=== PATIENT | female | born 1980 | race Caucasian/White ===

== ENCOUNTER 2021-04-03 17:21 | Observation (INO) | payer OTHER, SELFPAY ==
--- NOTE | 2021-04-03 | ECG_ITS ---
Test Reason : CHEST PAIN Blood Pressure : / mmHG Vent. Rate : 099 BPM Atrial Rate : 099 BPM P-R Int : 142 ms QRS Dur : 072 ms QT Int : 336 ms P-R-T Axes : 069 077 -06 degrees QTc Int : 431 ms Sinus rhythm with marked sinus arrhythmia Low voltage QRS Nonspecific T wave abnormality Abnormal ECG No previous ECGs available Referred By: Generic ED Physician Electronically Signed By:MAXWELL BERG
--- NOTE | ~2021-04-03 | XR_ITS ---
EXAMINATION: XR CHEST CLINICAL INFORMATION: Chest pain COMPARISON: None TECHNIQUE: Frontal view of the chest was obtained. FINDINGS: Lungs are well-inflated and clear. Trachea is midline in position. No interstitial disease, consolidation or mass. No pulmonary edema, pleural effusion or pneumothorax. Cardiac silhouette and pulmonary vessels are normal in size. The mediastinum and niurka have normal contour. The visualized bones and upper abdomen are unremarkable. XR/XR chest 1V IMPRESSION: No acute cardiopulmonary abnormality.
--- NOTE | ~2021-04-03 | CT_ITS ---
EXAMINATION: CT ANGIOGRAM OF THE CHEST WITH AND WITHOUT CONTRAST (CT PULMONARY ANGIOGRAM FOR PE) CLINICAL INFORMATION: Reason for Exam Tachycardia, pain on inspiration COMPARISON: None TECHNIQUE: Prior to contrast administration, noncontrast localization images were obtained. Subsequently, multidetector volumetric imaging was performed from the thoracic inlet to below the diaphragms following the administration of 65 mL Omnipaque 350 intravenous contrast. No contrast reaction reported Sagittal, coronal, and MIP oblique sagittal reformatted images were obtained on the CT workstation, uploaded to PACS, and reviewed. This CT examination was performed using dose optimization techniques as appropriate, variously including the following: *Automated exposure control *Adjustment of mA and/or kV according to patient size (this includes techniques or standardized protocols for targeted exams where dose is matched to indication/reason for exam; i.e. extremities or head) *Use of iterative reconstruction technique Total exam dose-length product 359 mGy-cm FINDINGS: QUALITY OF STUDY/CONTRAST BOLUS: Satisfactory. PULMONARY ARTERIES: No central or segmental pulmonary emboli. THORACIC AORTA: No aneurysm or dissection. LUNG: No focal consolidation, nodules or masses. PLEURA: No pleural effusion or pneumothorax. MEDIASTINUM: Normal heart size. No pericardial effusion. No hilar or mediastinal lymphadenopathy. No evidence of septal bowing or right heart strain. CHEST WALL/AXILLA: No axillary or internal mammary lymphadenopathy. OSSEOUS STRUCTURES: No acute or suspicious osseous abnormality. UPPER ABDOMEN: Unremarkable. No reflux of contrast into the hepatic veins to suggest elevated right heart pressures. CT/CT angio chest PE protocol IMPRESSION: Normal pulmonary CTA. No evidence of embolic disease. VTE: negative
--- NOTE | ~2021-04-03 | CT_ITS ---
EXAMINATION: CT HEAD WITH CONTRAST CLINICAL INFORMATION: Right-sided headache COMPARISON: None TECHNIQUE: Contiguous axial imaging was performed from the skull base to vertex following the administration of 65 mL of Omnipaque [address] examination was performed using dose optimization techniques as appropriate, variously including the following: *Automated exposure control *Adjustment of mA and/or kV according to patient size (this includes techniques or standardized protocols for targeted exams where dose is matched to indication/reason for exam; i.e. extremities or head) *Use of iterative reconstruction technique DLP: 691 mGy-cm FINDINGS: There is no evidence of acute intracranial hemorrhage or territorial infarction. No abnormal mass effect or midline shift is seen. [place] to white matter differentiation is well preserved. No extra-axial fluid collections are identified. There is no abnormal enhancement. The ventricles are normal in size. There is no abnormal attenuation within the brain parenchyma. The osseous structures and soft tissues are normal. The mastoid air cells and visualized portions of the paranasal sinuses are well aerated. CT/CT head/brain w con IMPRESSION: No acute intracranial pathology.
[2021-04-03 17:24] VITALS: BP 119/95; PULSE 106; RESP 19; TEMP 36.8; O2SAT 100; BMI 31.1
[2021-04-03 17:48] LABS: MANUAL DIFF FLAG NO
[2021-04-03 17:50] LABS: Basophils Percent Auto 0.4 % (0-2); Hematocrit 36.9 % (37.0-47.0); Hemoglobin 11.8 g/dl (12.0-16.0); Imm Gran Abs Auto 0.03 X10*3/uL (0.00-0.03); Imm Gran Pct Auto 0.4 % (0.0-0.4); Lymphocytes Percent Auto 13.4 % (20-40); Mean Corpuscular Hemoglobin 25.8 pg (27.0-33.0); Mean Corpuscular Volume 80.6 fL (80.0-98.0); Mean Platelet Volume 9.6 fL (9.4-12.3); Monocytes Absolute Auto 0.3 X10*3/uL (0.1-1.2); Monocytes Percent Auto 4.3 % (2-11); Neutrophils Absolute Auto 6.3 x10*3/uL (2.0-8.3); Neutrophils Percent Auto 81.5 % (45-73); Platelet Count 415 X10*3/uL (160-400); Red Blood Count 4.58 X10*6/uL (4.20-5.50); Red Cell Distribution Width 14.6 % (11.0-16.0); White Blood Count 7.7 X10*3/uL (4.8-10.8)
[2021-04-03 18:02] LABS: Anion Gap 13 (12-20); Blood Urea Nitrogen 8 mg/dL (9-16); Calcium 9.8 mg/dL (8.4-10.2); Carbon Dioxide 21 mmol/L (22-29); Chloride 108 mmol/L (96-108); Creatinine Clr Calc Pharmacy 103.6; Estimated Glomerular Filt Rate > 60; Glucose Random 134 mg/dL (60-115); Potassium 3.7 mmol/L (3.3-5.1); Sodium 138 mmol/L (135-145)
[2021-04-03 18:04] LABS: D Dimer High Sensitivity < 150 NG/ML
[2021-04-03 18:09] LABS: Troponin-I High Sensitivity < 3.5 ng/L (<3.5-17.0)
--- NOTE | 2021-04-03 18:10 | ED.CHESTPAIN ---
HPI - Chest Pain General Chief Complaint: Chest Pain Stated Complaint: chest pains, palpitations Time Seen by Provider: 04/03/21 21:10 Source: patient Mode of arrival: ambulatory Limitations: no limitations History of Present Illness HPI narrative: 40-year-old female presents with multiple complaints. States that she has had multiple episodes of chest pain, palpitations, shortness of breath and increased palpitations on minimal exertion, and weakness. She also reports right-sided headache with pain behind her ear eye and neck for approximately 2 weeks. She was treated with antibiotics for an ear infection which she finished the last dose of antibiotics today. Patient did state that she felt a little bit better midway through the course of antibiotics however today her weakness, palpitations, and shortness of breath on exertion has increased. MD complaint: chest pain Onset (ago): week(s) Timing of current episode: episodic and increasing Prior episodes: Yes Onset: during rest and during exertion Pain location: substernal Pain radiation: neck and right shoulder Severity: moderate Pain scale (0-10): 7 Quality: aching and heaviness Relieving factors: nothing Exacerbating factors: exertion and inspiration Associated symptoms: nausea, dyspnea and palpitations Treatment prior to arrival: none Risk Factors Coronary artery disease risk factors: none Thoracic aortic dissection risk factors: none Related Data On Oral Contraceptives: No Allergies Allergy/AdvReac Type Severity Reaction Status Date / Time oxycodone [From OxyContin] AdvReac Drowsy Verified 04/04/21 00:13 Review of Systems Review of Systems: Constitutional: No Weight loss, No Fever, No Chills, No Night Sweats, positive Fatigue, No Malaise ENT/Mouth: No Hearing loss, positive right ear Ear pressure, No Nasal Congestion, No Sinus Pain, No Hoarseness, No sore throat, No Rhinorrhea, No Swallowing Difficulty Eyes: Positive right Eye pressure, No Swelling, No Redness, No Foreign Body, No Discharge, No Vision Changes Cardiovascular: Positive Chest Pain, positive SOB, positive Dyspnea on Exertion, No Orthopnea, No Edema, positive Palpitations Respiratory: No Cough, No Sputum, No Wheezing, No Smoke Exposure, No Dyspnea Gastrointestinal: Positive Nausea, No Vomiting, No Diarrhea, No abdominal Pain, No Hematochezia, No Melena Genitourinary: No irregular bleeding, No Dysuria, No Urinary Frequency, No Hematuria, No Urinary Incontinence, No Urgency, No Flank Pain, No Urinary Flow Changes, No Hesitancy Musculoskeletal: No joint pain, No Myalgias, No Joint Swelling Skin: No Skin Lesions, No rash Neuro: No Weakness, No Numbness, No Paresthesias, No Loss of Consciousness, No Dizziness, No Headache Psych: No Anxiety/Panic, No Depression, No SI/HI/AH/VH Heme/Lymph: No Bruising, No Bleeding,No Lymphadenopathy Endocrine: No Polyuria, No Polydipsia, No Temperature Intolerance Yes all other systems are reviewed and are negative [facility], [facility] Past Medical History Attestation statement: The following information was validated with the patient. Source: old records reviewed Medical History Anemia Surgical History History of tonsillectomy Social History Social History Advance Directives: No Advance Directives Information Provided: No Physical Exam Vital Signs: Vital Signs: Last Vital Signs Temp 98.7 F 04/03/21 21:20 Pulse 79 04/03/21 23:53 Resp 18 04/03/21 23:53 BP 100/70 04/03/21 23:53 Pulse Ox 99 04/03/21 23:53 BMI result Body Mass Index 31.1 Appearance: Alert. Oriented X3. Mild distress. Eyes: Pupils equal, round and reactive to light. EOMI. Sclera nonicteric. ENT: Pharynx normal. Dry mucous membranes. Neck: Normal inspection. Neck supple. No cervical lymphadenopathy. No tenderness to palpation. No nuchal rigidity. No vertebral tenderness or step-offs to palpation. CVS: Tachycardic heart rate and rhythm. Apical pulse pulse to extremities. Respiratory: No respiratory distress. Breath sounds normal. Abdomen: Soft and nontender. Skin: Skin warm and dry. Normal skin color. Normal skin turgor. Extremities: No lower extremity edema. Gait well-balanced will coordinated. Neuro: No motor deficit. No sensory deficit. Cranial nerves 2-12 intact. Course Course Course Narrative: 40-year-old female presents with multiple complaints. She has been complaining about chest pain has been intermittent over the past several weeks, increases with exertion and accompanied with palpitations. Palpitations reach up to the 140s on minimal exertion. She does not experience any dizziness, lightheadedness, or diaphoresis but does have shortness of breath. Her 2nd concerning complaint is the right-sided headache with right eye and ear pressure. She was treated at an urgent care with antibiotics for otitis media, which she completed the entire course last dose being today. She did say that she had some relief with this course of antibiotics however worsening symptoms presented today. Lab values are relatively unremarkable, patient is known to have anemia H&H is 11.8/36.9, D-dimer is negative, chemistries are unremarkable. Glucose is 134. Will add a TSH onto her lab values, along with magnesium, PT INR ESR and CRP. Order for CT PE study and head with contrast. 21:09 heart rates in the 120s, patient is visibly short of breath, stat EKG ordered. CTA PE study and CT of head is negative findings requiring emergent intervention. Dr. Collins bedside for evaluation. Bolus ineffective. Given Lopressor 5 mg IV push. Patient ambulated, heart rate bumped up to the 110s from 80 23:10 discussion with Cardiology on-call, plan of care is to admit for further evaluation and echocardiogram for the morning. Discussion with hospitalist, plan of care is to admit for tachycardia and chest pain. Consultations Consultation #1: tomi Time: 23:00 Consultation #2: Gladys Time: 23:10 MDM - Chest Pain Differential Diagnosis Differential diagnosis: Likely pneumothorax, stable angina, unstable angina pectoris, atypical chest pain, costochondritis and chest pain Differential diagnosis: Arrhythmia Medical Records Data Attestation: I reviewed the patient's medical records. Lab Data Attestation: I reviewed the patient's lab results. Result diagrams: 04/03/21 17:45 04/03/21 17:45 Labs: Lab Results 04/03/21 04/03/21 04/03/21 Range/Units 17:45 17:45 17:45 WBC 7.7 (4.8-10.8) X10*3/uL RBC 4.58 (4.20-5.50) X10*6/uL Hgb 11.8 L (12.0-16.0) g/dl Hct 36.9 L (37.0-47.0) % MCV 80.6 (80.0-98.0) fL MCH 25.8 L (27.0-33.0) pg MCHC 32.0 (31.0-35.0) g/dl RDW 14.6 (11.0-16.0) % Plt Count 415 H (160-400) X10*3/uL MPV 9.6 (9.4-12.3) fL Immature Gran % (Auto) 0.4 (0.0-0.4) % Neut % (Auto) 81.5 H (45-73) % Lymph % (Auto) 13.4 L (20-40) % [place] % (Auto) 4.3 (2-11) % Eos % (Auto) 0.0 (0-4) % Baso % (Auto) 0.4 (0-2) % Lymph # (Auto) 1.0 L (1.2-4.9) X10*3/uL [place] # (Auto) 0.3 (0.1-1.2) X10*3/uL Eos # (Auto) 0.0 (0.0-0.4) X10*3/uL Baso # (Auto) 0.0 (0.0-0.2) X10*3/uL Abs Immat Gran (auto) 0.03 (0.00-0.03) X10*3/uL Absolute Neuts (auto) 6.3 (2.0-8.3) x10*3/uL Absolute Nucleated RBC 0.000 (0.0-0.012) X10*3/uL Nucleated RBC % (auto) 0.0 (0.0-0.2) /100WBC ESR (0-20) MM/HR APTT (24.1-38.0) SEC D-Dimer High Sensitivty < 150 NG/ML Sodium 138 (135-145) mmol/L Potassium 3.7 (3.3-5.1) mmol/L Chloride 108 (96-108) mmol/L Carbon Dioxide 21 L (22-29) mmol/L Anion Gap 13 (12-20) BUN 8 L (9-16) mg/dL Creatinine 0.82 (0.5-1.4) mg/dL Estim Creat Clear Calc 103.6 Estimated GFR > 60 Random Glucose 134 H (60-115) mg/dL Calcium 9.8 (8.4-10.2) mg/dL Magnesium (1.6-2.6) mg/dL Troponin I High Sens (<3.5-17.0) ng/L C-Reactive Protein (< or = 0.50) mg/dL B-Natriuretic Peptide (<100) pg/mL TSH (0.32-4.0) uIU/mL Urine Color Urine Appearance Urine pH (5.0-8.0) Ur Specific [place] (1.005-1.025) Urine Protein (NEG-TRACE) MG/DL Urine Glucose (UA) (NEG) MG/DL Urine Ketones (NEG) MG/DL Urine Blood (NEG) Urine Nitrite (NEG) Ur Leukocyte Esterase (NEG) Urine RBC (0) /HPF Urine WBC (0-4) /HPF Ur Squamous Epith Cells /LPF Urine Bacteria /LPF 04/03/21 04/03/21 04/03/21 Range/Units 17:45 18:37 18:37 WBC (4.8-10.8) X10*3/uL RBC (4.20-5.50) X10*6/uL Hgb (12.0-16.0) g/dl Hct (37.0-47.0) % MCV (80.0-98.0) fL MCH (27.0-33.0) pg MCHC (31.0-35.0) g/dl RDW (11.0-16.0) % Plt Count (160-400) X10*3/uL MPV (9.4-12.3) fL Immature Gran % (Auto) (0.0-0.4) % Neut % (Auto) (45-73) % Lymph % (Auto) (20-40) % [place] % (Auto) (2-11) % Eos % (Auto) (0-4) % Baso % (Auto) (0-2) % Lymph # (Auto) (1.2-4.9) X10*3/uL [place] # (Auto) (0.1-1.2) X10*3/uL Eos # (Auto) (0.0-0.4) X10*3/uL Baso # (Auto) (0.0-0.2) X10*3/uL Abs Immat Gran (auto) (0.00-0.03) X10*3/uL Absolute Neuts (auto) (2.0-8.3) x10*3/uL Absolute Nucleated RBC (0.0-0.012) X10*3/uL Nucleated RBC % (auto) (0.0-0.2) /100WBC ESR 14 (0-20) MM/HR APTT 35.4 (24.1-38.0) SEC D-Dimer High Sensitivty NG/ML Sodium (135-145) mmol/L Potassium (3.3-5.1) mmol/L Chloride (96-108) mmol/L Carbon Dioxide (22-29) mmol/L Anion Gap (12-20) BUN (9-16) mg/dL Creatinine (0.5-1.4) mg/dL Estim Creat Clear Calc Estimated GFR Random Glucose (60-115) mg/dL Calcium (8.4-10.2) mg/dL Magnesium (1.6-2.6) mg/dL Troponin I High Sens < 3.5 (<3.5-17.0) ng/L C-Reactive Protein (< or = 0.50) mg/dL B-Natriuretic Peptide 18 (<100) pg/mL TSH (0.32-4.0) uIU/mL Urine Color Urine Appearance Urine pH (5.0-8.0) Ur Specific [place] (1.005-1.025) Urine Protein (NEG-TRACE) MG/DL Urine Glucose (UA) (NEG) MG/DL Urine Ketones (NEG) MG/DL Urine Blood (NEG) Urine Nitrite (NEG) Ur Leukocyte Esterase (NEG) Urine RBC (0) /HPF Urine WBC (0-4) /HPF Ur Squamous Epith Cells /LPF Urine Bacteria /LPF 04/03/21 04/03/21 Range/Units 18:37 19:58 WBC (4.8-10.8) X10*3/uL RBC (4.20-5.50) X10*6/uL Hgb (12.0-16.0) g/dl Hct (37.0-47.0) % MCV (80.0-98.0) fL MCH (27.0-33.0) pg MCHC (31.0-35.0) g/dl RDW (11.0-16.0) % Plt Count (160-400) X10*3/uL MPV (9.4-12.3) fL Immature Gran % (Auto) (0.0-0.4) % Neut % (Auto) (45-73) % Lymph % (Auto) (20-40) % [place] % (Auto) (2-11) % Eos % (Auto) (0-4) % Baso % (Auto) (0-2) % Lymph # (Auto) (1.2-4.9) X10*3/uL [place] # (Auto) (0.1-1.2) X10*3/uL Eos # (Auto) (0.0-0.4) X10*3/uL Baso # (Auto) (0.0-0.2) X10*3/uL Abs Immat Gran (auto) (0.00-0.03) X10*3/uL Absolute Neuts (auto) (2.0-8.3) x10*3/uL Absolute Nucleated RBC (0.0-0.012) X10*3/uL Nucleated RBC % (auto) (0.0-0.2) /100WBC ESR (0-20) MM/HR APTT (24.1-38.0) SEC D-Dimer High Sensitivty NG/ML Sodium (135-145) mmol/L Potassium (3.3-5.1) mmol/L Chloride (96-108) mmol/L Carbon Dioxide (22-29) mmol/L Anion Gap (12-20) BUN (9-16) mg/dL Creatinine (0.5-1.4) mg/dL Estim Creat Clear Calc Estimated GFR Random Glucose (60-115) mg/dL Calcium (8.4-10.2) mg/dL Magnesium 2.2 (1.6-2.6) mg/dL Troponin I High Sens (<3.5-17.0) ng/L C-Reactive Protein 0.13 (< or = 0.50) mg/dL B-Natriuretic Peptide (<100) pg/mL TSH 0.54 (0.32-4.0) uIU/mL Urine Color YELLOW Urine Appearance CLEAR Urine pH 7.0 (5.0-8.0) Ur Specific [place] 1.010 (1.005-1.025) Urine Protein NEG (NEG-TRACE) MG/DL Urine Glucose (UA) NEG (NEG) MG/DL Urine Ketones NEG (NEG) MG/DL Urine Blood 1+ H (NEG) Urine Nitrite NEG (NEG) Ur Leukocyte Esterase TRACE H (NEG) Urine RBC 1-4 (0) /HPF Urine WBC 1-4 (0-4) /HPF Ur Squamous Epith Cells 2+ /LPF Urine Bacteria TRACE /LPF Imaging Data Chest x-ray: Attestation: I personally reviewed and interpreted this imaging study as follows: Radiologist's impression: EXAMINATION: XR CHEST CLINICAL INFORMATION: Chest pain COMPARISON: None TECHNIQUE: Frontal view of the chest was obtained. FINDINGS: Lungs are well-inflated and clear. Trachea is midline in position. No interstitial disease, consolidation or mass. No pulmonary edema, pleural effusion or pneumothorax.? Cardiac silhouette and pulmonary vessels are normal in size. The mediastinum and niurka have normal contour. The visualized bones and upper abdomen are unremarkable. XR/XR chest 1V IMPRESSION: No acute cardiopulmonary abnormality. ? CT scan - head: Attestation: I personally reviewed and interpreted this imaging study as follows: Radiologist's impression: EXAMINATION: CT HEAD WITH CONTRAST CLINICAL INFORMATION: Right-sided headache COMPARISON: None TECHNIQUE: Contiguous axial imaging was performed from the skull base to vertex following the administration of 65 mL of Omnipaque [address] examination was performed using dose optimization techniques as appropriate, variously including the following: *Automated exposure control *Adjustment of mA and/or kV according to patient size (this includes techniques or standardized protocols for targeted exams where dose is matched to indication/reason for exam; i.e. extremities or head) *Use of iterative reconstruction technique DLP: 691 mGy-cm FINDINGS: There is no evidence of acute intracranial hemorrhage or territorial infarction. No abnormal mass effect or midline shift is seen. Mead to white matter differentiation is well preserved. No extra-axial fluid collections are identified. There is no abnormal enhancement. The ventricles are normal in size. There is no abnormal attenuation within the brain parenchyma. The osseous structures and soft tissues are normal. The mastoid air cells and visualized portions of the paranasal sinuses are well aerated. ? CT/CT head/brain w con IMPRESSION: No acute intracranial pathology. CT scan - chest: Attestation: I personally reviewed and interpreted this imaging study as follows: Radiologist's impression: EXAMINATION: CT ANGIOGRAM OF THE CHEST WITH AND WITHOUT CONTRAST (CT PULMONARY ANGIOGRAM FOR PE) CLINICAL INFORMATION: Reason for Exam Tachycardia, pain on inspiration COMPARISON: None? TECHNIQUE: Prior to contrast administration, noncontrast localization images were obtained. ? Subsequently, multidetector volumetric imaging was performed from the thoracic inlet to below the diaphragms following the administration of 65 mL Omnipaque 350 intravenous contrast. No contrast reaction reported Sagittal, coronal, and MIP oblique sagittal reformatted images were obtained on the CT workstation, uploaded to PACS, and reviewed. This CT examination was performed using dose optimization techniques as appropriate, variously including the following: *Automated exposure control *Adjustment of mA and/or kV according to patient size (this includes techniques or standardized protocols for targeted exams where dose is matched to indication/reason for exam; i.e. extremities or head) *Use of iterative reconstruction technique Total exam dose-length product 359 mGy-cm FINDINGS: QUALITY OF STUDY/CONTRAST BOLUS: Satisfactory. PULMONARY ARTERIES: No central or segmental pulmonary emboli.? THORACIC AORTA: No aneurysm or dissection. LUNG: No focal consolidation, nodules or masses. PLEURA: No pleural effusion or pneumothorax. MEDIASTINUM: Normal heart size.? No pericardial effusion.? No hilar or mediastinal lymphadenopathy.? No evidence of septal bowing or right heart strain. CHEST WALL/AXILLA: No axillary or internal mammary lymphadenopathy. OSSEOUS STRUCTURES: No acute or suspicious osseous abnormality.? UPPER ABDOMEN: Unremarkable.? No reflux of contrast into the hepatic veins to suggest elevated right heart pressures. CT/CT angio chest PE protocol IMPRESSION: Normal pulmonary CTA. No evidence of embolic disease. ? VTE: negative ECG Data ECG #1: Attestation: I personally reviewed and interpreted this ECG as follows: ECG interpretation date: 04/03/21 ECG interpretation time: 17:32 Prior ECG tracings: available for review Interpretation: Vent. rate 99 BPM ME interval 142 ms QRS duration 72 ms QT/QTc 336/431 ms P-R-T axes 69 77 -6 Sinus rhythm with marked sinus arrhythmia Low voltage QRS Nonspecific T wave abnormality Abnormal ECG No previous ECGs available ECG #2: Attestation: I personally reviewed and interpreted this ECG as follows: ECG interpretation date: 04/03/21 ECG interpretation time: 21:10 Prior ECG tracings: available for review Interpretation: Ventricular rate 113, ME 158, QRS 70, QT 338, QTC 463 sinus tachycardia nonspecific T-wave abnormality low voltage QRS no ischemia ST elevations or depressions noted Scores Heart Score History: -0- slightly suspicious ECG: -0- normal Age: -0- < or = 45 Risk factory: -0- no risk factors known Troponin: -0- < or = normal limit Score: 0 Risk: 1.7% Wells PE Clinical symptoms of DVT: 3 Heart rate > 100 p/min: 1.5 Score: 4.5 2-tier Risk: likely risk (17-53%) Critical Care Time Critical Care Time Critical Care Time: Yes Total Critical Care Time: 45 Attestation: I have personally provided critical care time exclusive of time spent on separately billable procedures. Time includes review of laboratory data, radiology results, discussion with consultants, and monitoring for potential decompensation. Interventions were performed as documented. Discharge Plan Discharge Clinical Impression: Chest pain, Tachycardia Patient Disposition: Admitted As Inpatient
[2021-04-03 18:18] VITALS: BP 140/69; PULSE 94; RESP 16; TEMP 36.9; O2SAT 100
[2021-04-03 18:53] LABS: Partial Thromboplastin Time 35.4 SEC (24.1-38.0)
[2021-04-03 18:57] LABS: C Reactive Protein 0.13 mg/dL (< or = 0.50); Magnesium 2.2 mg/dL (1.6-2.6)
[2021-04-03 19:27] LABS: Erythrocyte Sedimentation Rate 14 MM/HR (0-20)
[2021-04-03] MEDS: iohexoL 350 MG/ML 100 ML INFUS..BTL 65 ML IV (19:45)
[2021-04-03 19:56] VITALS: BP 105/61; PULSE 98; RESP 16; TEMP 36.9; O2SAT 99
[2021-04-03 19:59] LABS: TSH reflex Free T4 0.54 uIU/mL (0.32-4.0)
[2021-04-03 20:07] LABS: Appearance Urine CLEAR; Color Urine YELLOW; Glucose Urine UA NEG (NEG); Leukocyte Esterase Urine TRACE (NEG); Nitrite Urine NEG (NEG); UACC Culture Trigger YES; Urine Blood 1+ (NEG); Urine Ketones NEG (NEG); Urine Protein NEG (NEG-TRACE)
[2021-04-03 21:20] VITALS: BP 124/86; PULSE 116; RESP 22; TEMP 37.1; O2SAT 97
--- NOTE | 2021-04-03 21:23 | ECG_ITS ---
Test Reason : PALPATIONS Blood Pressure : / mmHG Vent. Rate : 113 BPM Atrial Rate : 113 BPM P-R Int : 158 ms QRS Dur : 070 ms QT Int : 338 ms P-R-T Axes : 067 063 000 degrees QTc Int : 463 ms Sinus tachycardia Low voltage QRS Nonspecific T wave abnormality Abnormal ECG When compared with ECG of 03-APR-2021 17:32, No significant change was found Referred By: Slevin Yu Electronically Signed By:Jorge Pena
[2021-04-03] MEDS: 0.9 % Sodium Chloride 1,000 ML 999 ML IVCONT (21:31)
[2021-04-03 21:34] LABS: Bacteria Urine TRACE /LPF; Squamous Epithelial Cell Urine 2+ /LPF
[2021-04-03 21:38] LABS: B Type Natriuretic Peptide 18 pg/mL (<100)
[2021-04-03] MEDS: Metoprolol Tartrate 5 MG/5 ML VIAL IVPUSH (22:08)
[2021-04-03 22:16] VITALS: BP 117/60; PULSE 78; RESP 19; O2SAT 97
--- NOTE | 2021-04-03 22:55 | PC.NURSE ---
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 patient started at 75 bpm prior to ambulation trial, noted to become tacy to 105, reports feeling overall improved at this time and denies any SOB with ambulation. no obvious distress at this time, provider aware
--- NOTE | 2021-04-03 23:40 | P.HPHOSP_ITS ---
History of Present Illness Date of Service: 04/03/21 Chief Complaint: palpitations this is a 40-year-old female with past medical of iron deficiency anemia, vitamin-D deficiency who presents to the hospital with complaints of palpitations, and chest pain. Patient reports that she has had a feeling of heaviness, heat, in the middle of her chest, intermittent, nonradiating, associated with generalized weakness, and shortness of breath, this started about 1 month ago and has progressively gotten worse. She reports that she feels that she gets hot flashes, and has exertional dyspnea. She reports that even lifting her daughter makes her feel very tired and short of breath and makes her chest pain worse. She reports that when she received metoprolol in the ED she felt complete relief and coolness in her chest. patient denies history of anxiety, reports history of AFib in her father She denies any cough, no fever or chills, no abdominal pain nausea or vomiting, no diarrhea constipation, no urinary symptoms and no lower extremity edema. on arrival to the ED patient found to have a heart rate of 106, increasing to the 140s with minimal exertion, EKG showed sinus rhythm with marked sinus arrhythmia, no ST T-wave changes Labs are significant for WBC count of 7.7, hemoglobin of 11.8, hematocrit 36.9, labs otherwise unremarkable. TSH of 0.54, troponin of less than 3.5, and BNP of 18. UA positive for leukocyte Estrace and some WBC. Case was discussed with Cardiology, would like patient admitted for evaluation echocardiogram Review of Systems Review of Systems: Yes all other systems are reviewed and are negative [facility] Medical History (Updated 04/04/21 @ 06:34 by Adina Graham MD) Anemia Vitamin D deficiency Family History (Updated 04/04/21 @ 06:36 by Adina Graham MD) Father Atrial fibrillation Surgical History History of tonsillectomy Social History (Updated 04/04/21 @ 06:34 by Adina Graham MD) Alcohol intake: never Patient Tobacco Use Status: Never used Tobacco Use of substances other than those prescribed or required for medical reasons: No Advance Directives: No Advance Directives Information Provided: No Meds Allergies Allergy/AdvReac Type Severity Reaction Status Date / Time oxycodone [From OxyContin] AdvReac Drowsy Verified 04/04/21 00:13 Physical Exam Vital Signs and Narrative: Vital Signs: Last Vital Signs Temp 98.7 F 04/03/21 21:20 Pulse 78 04/03/21 22:16 Resp 19 04/03/21 22:16 BP 117/60 04/03/21 22:16 Pulse Ox 97 04/03/21 22:16 BMI result Body Mass Index 31.1 Const: General: cooperative and no acute distress Orientation/consciousness: patient oriented x3 Eyes: General: appearance normal, both eyes and all related structures Resp: Effort & Inspection: normal respiratory effort Auscultation: clear to auscultation bilaterally Cardio: Rate: regular rate Rhythm: regular rhythm GI: Palpation (GI): Soft to palpation Auscultation: normal bowel sounds Skin: General skin exam: no rashes or lesions noted Neuro: General: patient oriented x3 Cognition (Neuro): normal cognition Extrem: General: Yes normal to inspection and Yes no pedal edema Results Labs CBC and Chem 7: 04/03/21 17:45 04/03/21 17:45 Labs: Laboratory Results - last 24 hr 04/03/21 04/03/21 04/03/21 17:45 17:45 17:45 MCV 80.6 MCH 25.8 L MCHC 32.0 RDW 14.6 Plt Count 415 H MPV 9.6 Immature Gran % (Auto) 0.4 Neut % (Auto) 81.5 H Lymph % (Auto) 13.4 L [place] % (Auto) 4.3 Eos % (Auto) 0.0 Baso % (Auto) 0.4 Lymph # (Auto) 1.0 L [place] # (Auto) 0.3 Eos # (Auto) 0.0 Baso # (Auto) 0.0 Abs Immat Gran (auto) 0.03 Absolute Neuts (auto) 6.3 Absolute Nucleated RBC 0.000 Nucleated RBC % (auto) 0.0 ESR APTT D-Dimer High Sensitivty < 150 Anion Gap 13 Estim Creat Clear Calc 103.6 Estimated GFR > 60 Random Glucose 134 H Calcium 9.8 Magnesium C-Reactive Protein B-Natriuretic Peptide TSH Urine Color Urine Appearance Urine pH Ur Specific [place] Urine Protein Urine Glucose (UA) Urine Ketones Urine Blood Urine Nitrite Ur Leukocyte Esterase Urine RBC Urine WBC Ur Squamous Epith Cells Urine Bacteria 04/03/21 04/03/21 04/03/21 17:45 18:37 18:37 MCV MCH MCHC RDW Plt Count MPV Immature Gran % (Auto) Neut % (Auto) Lymph % (Auto) [place] % (Auto) Eos % (Auto) Baso % (Auto) Lymph # (Auto) [place] # (Auto) Eos # (Auto) Baso # (Auto) Abs Immat Gran (auto) Absolute Neuts (auto) Absolute Nucleated RBC Nucleated RBC % (auto) ESR 14 APTT 35.4 D-Dimer High Sensitivty Anion Gap Estim Creat Clear Calc Estimated GFR Random Glucose Calcium Magnesium C-Reactive Protein B-Natriuretic Peptide 18 TSH Urine Color Urine Appearance Urine pH Ur Specific [place] Urine Protein Urine Glucose (UA) Urine Ketones Urine Blood Urine Nitrite Ur Leukocyte Esterase Urine RBC Urine WBC Ur Squamous Epith Cells Urine Bacteria 04/03/21 04/03/21 18:37 19:58 MCV MCH MCHC RDW Plt Count MPV Immature Gran % (Auto) Neut % (Auto) Lymph % (Auto) [place] % (Auto) Eos % (Auto) Baso % (Auto) Lymph # (Auto) [place] # (Auto) Eos # (Auto) Baso # (Auto) Abs Immat Gran (auto) Absolute Neuts (auto) Absolute Nucleated RBC Nucleated RBC % (auto) ESR APTT D-Dimer High Sensitivty Anion Gap Estim Creat Clear Calc Estimated GFR Random Glucose Calcium Magnesium 2.2 C-Reactive Protein 0.13 B-Natriuretic Peptide TSH 0.54 Urine Color YELLOW Urine Appearance CLEAR Urine pH 7.0 Ur Specific [place] 1.010 Urine Protein NEG Urine Glucose (UA) NEG Urine Ketones NEG Urine Blood 1+ H Urine Nitrite NEG Ur Leukocyte Esterase TRACE H Urine RBC 1-4 Urine WBC 1-4 Ur Squamous Epith Cells 2+ Urine Bacteria TRACE Imaging Radiologist's Impressions: Impressions Chest X-Ray 04/03/21 18:00 IMPRESSION: No acute cardiopulmonary abnormality. Chest CTA 04/03/21 19:50 IMPRESSION: Normal pulmonary CTA. No evidence of embolic disease. VTE: negative Head CT 04/03/21 19:54 IMPRESSION: No acute intracranial pathology. Assessment and Plan (1) Palpitations: Status: Acute (2) Chest pain: Status: Acute Plan 40-year-old female with past medical history of anemia presents to the hospital with complaints of chest pain as well as palpitations found to have sinus tachyc ardia # chest pain - likely secondary to sinus tachycardia - D-dimer negative, troponin negative, EKG shows no ST T-wave changes suggestive of ACS - patient found to have tachycardia with EKG showing sinus tachycardia - will admit to telemetry, will obtain echocardiogram # palpitations - normal TSH - EKG showing normal sinus rhythm with sinus tachycardia - will consult Cardiology - echocardiogram # history of iron deficiency anemia due to heavy periods - stable hemoglobin - follow CBC DVT prophylaxis: early ambulation Quality Stroke Does the patient have a stroke diagnosis?: No VTE Prior VTE?: No VTE Risk Level:: Medical - low VTE Device Contraindication: Treatment Not Indicated VTE Drug Contraindication: Treatment Not Indicated
[2021-04-03 23:53] VITALS: BP 100/70; PULSE 79; RESP 18; O2SAT 99
[2021-04-04] MEDS: Metoprolol Tartrate 12.5 MG HALFTAB PO (00:15)
--- NOTE | 2021-04-04 01:10 | PC.NURSE ---
PCT informed this RN that pt's BP 100/50 during VS assessment. This RN notes that pt has metoprolol 12.5mg PO, this RN asks provider if it is OK to give despite VS. Lisa PHARMACY PICKING TECHNICIAN states to give med. This rn to bedside to medicate per orders. Pt aaox4, resting on stretcher in NAD, breathing with ease on RA, VSS, pt NSR on security monitor. Pt speaking in complete, clear sentences, skin warm dry and normal in appearance for age and race. Pt denies pain/discomfort/palpitations/lightheadedness/dizziness. Pt stretcher in low locked position, rails raised, call damico within reach, agreeable to plan for admission for observation. Report called to Ramya ZAMORA in overflow unit. Pt to be swabbed for covid with [facility] and then transferred to overflow unit pending negative results.
[2021-04-04 01:42] LABS: COVID-19 Test Negative (Negative)
--- NOTE | 2021-04-04 03:10 | PC.NURSE ---
Pt came from the ED to bed #2 around 2am, alert and oriented, now SR at 60s-70s on tele, no more c/o palpitation ,SOB nor CP, VSS, resting comfortably.
[2021-04-04 07:29] LABS: MANUAL DIFF FLAG NO
[2021-04-04 07:47] LABS: Anion Gap 10 (12-20); Blood Urea Nitrogen 5 mg/dL (9-16); Calcium 9.1 mg/dL (8.4-10.2); Carbon Dioxide 23 mmol/L (22-29); Chloride 112 mmol/L (96-108); Creatinine Clr Calc Pharmacy 118.1; Estimated Glomerular Filt Rate > 60; Glucose Random 94 mg/dL (60-115); Potassium 4.2 mmol/L (3.3-5.1); Sodium 141 mmol/L (135-145)
[2021-04-04] MEDS: cefTRIAXone sodium 1 GM in 0.9 % Sodium Chloride 50 ML IV (07:58)
--- NOTE | 2021-04-04 08:07 | PC.NURSE ---
Pt A&Ox4, no complaints of pain at this time, NSR on monitor in the 80's. + pulses, good color. States when she got up to go to the BR this morning she did feel the warmth in her chest and could feel palpatations but it went away when she got back into bed and settled. Pt medicated as per MAR orders. Plan for echo today, call damico within reach. Will continue to monitor.
--- NOTE | 2021-04-04 08:10 | PHA.MEDREC ---
Pharmacy Consult ? Medication Reconciliation Pharmacy has completed the medication reconciliation. Spoke with patient in ED overflow. Patient recently moved here. Pt only takes vitamins at bedtime.
[2021-04-04 08:14] LABS: Basophils Absolute Auto 0.1 X10*3/uL (0.0-0.2); Basophils Percent Auto 0.8 % (0-2); Eosinophils Absolute Auto 0.1 X10*3/uL (0.0-0.4); Eosinophils Percent Auto 0.8 % (0-4); Hematocrit 32.9 % (37.0-47.0); Hemoglobin 10.3 g/dl (12.0-16.0); Imm Gran Abs Auto 0.02 X10*3/uL (0.00-0.03); Imm Gran Pct Auto 0.3 % (0.0-0.4); Lymphocytes Absolute Auto 1.9 X10*3/uL (1.2-4.9); Lymphocytes Percent Auto 28.8 % (20-40); Mean Corpuscular HGB Conc 31.3 g/dl (31.0-35.0); Mean Corpuscular Hemoglobin 25.5 pg (27.0-33.0); Mean Corpuscular Volume 81.4 fL (80.0-98.0); Mean Platelet Volume 9.9 fL (9.4-12.3); Monocytes Absolute Auto 0.6 X10*3/uL (0.1-1.2); Monocytes Percent Auto 8.8 % (2-11); Neutrophils Percent Auto 60.5 % (45-73); Platelet Count 358 X10*3/uL (160-400); Red Blood Count 4.04 X10*6/uL (4.20-5.50); Red Cell Distribution Width 14.9 % (11.0-16.0); White Blood Count 6.6 X10*3/uL (4.8-10.8)
[2021-04-04 08:39] VITALS: BP 93/50; PULSE 69; RESP 18; O2SAT 99
[2021-04-04 10:47] VITALS: BP 94/53; PULSE 91; RESP 15; O2SAT 98
--- NOTE | 2021-04-04 10:54 | PM.DS ---
DS: Providers Provider Date of Service: 04/04/21 Date of admission: 04/03/21 23:36 Primary care physician: Joo Kelly MD Consults: 04/03/21 23:36 Consult to Cardiology Routine Consulting Provider: Drake Wood Reason for consultation: tachycardia Has provider been notified: Yes 04/04/21 10:48 Consult to Care Team Routine Comment: Reason for consultation: anxiety DS: Diagnosis Discharge Diagnosis (1) Palpitations: Status: Acute (2) Chest pain: Status: Acute DS: Summary Hospital Course Hospital Course: 40-year-old female with past medical of iron deficiency anemia, vitamin-D deficiency who presents to the hospital with complaints of palpitations, and chest pain.? Patient reports that she has had a feeling of heaviness, heat, in the middle of her chest, intermittent, nonradiating, associated with generalized weakness, and shortness of breath, this started about? 1 month ago and has progressively gotten worse.? She reports that she feels that she gets hot flashes, and has exertional dyspnea.? She reports that even lifting her daughter makes her feel very tired and short of breath and makes her chest pain worse.? She reports that when she received metoprolol in the ED she felt complete relief and coolness in her chest. ?patient denies history of anxiety, reports history of AFib in her father ? She denies any cough, no fever? or chills, no abdominal pain nausea or vomiting, no diarrhea constipation, no urinary symptoms and no lower extremity edema.? ?on arrival to the ED patient found to have a heart rate of 106, increasing to the 140s with minimal exertion, EKG showed sinus rhythm with marked sinus arrhythmia, no ST T-wave changes Labs are significant for WBC count of 7.7, hemoglobin of 11.8, hematocrit 36.9, labs otherwise unremarkable.? TSH of 0.54, troponin of less than 3.5, and BNP of 18.? UA positive for leukocyte Estrace and some WBC. ? hospital course: Patient came to the hospital because of chest pain and tachycardia- Cardiac BNP and troponins is also completely normal.? TSH is normal.? Head CT shows no acute pathology.? Chest CT does not show any significant findings.? In the mediastinum reported have normal heart size and no pericardial effusion or other pathology. based upon labs slight neutrophil predominance/lymphopenia upon arrival which seems to be improved.? Renal function and electrolytes is fine.? Electrolytes are okay.? High sensitivity troponin within normal limits.? ESR and CRP are within normal limits.? patient has abnormal ua-possible question of uti: will add po antibiotics. Respiratory panel sent . since patient is improved , patient will go home , if respiratory panel comes back abnormal , will inform the patient. if persistent symptoms cardio may arrange outpatient appointment for possible echocardiogram and Holter as an outpatient to evaluate this further.? we walked patient in the floor to check her heart rate and it went up approximately to 100/Min and she had no symptoms with ambulation. In addition patient was told to keep herself well hydrated since she does not hydrate herself also. Care team saw the patient-information given.. Further workup outpatient as per PCP. Above management discussed with the patient in detail length she understand and in agreement with the above plan, time spent 50 minutes and 50% time spent on counseling. Significant findings: As above. Procedures performed: None. Treatment and response: As above. Complications: None. Time Spent with Patient Time attestation: Total time spent providing and/or coordinating discharge services: Discharge coordination time: Greater than 30 minutes Quality: Stroke Does the patient have a stroke diagnosis?: No Physical Exam Vital Signs: Vital Signs: Last Vital Signs Temp 98.7 F 04/03/21 21:20 Pulse 91 04/04/21 10:47 Resp 15 04/04/21 10:47 BP 94/53 L 04/04/21 10:47 Pulse Ox 98 04/04/21 10:47 BMI result Body Mass Index 31.1 Appearance: Alert.? Oriented X3.? not in distress.? Eyes: Pupils equal, round and reactive to light.? Sclera nonicteric.? ENT: Pharynx normal.? Moist mucous membranes. cvs: rrr, [id number] . res: clear to auscultation ,no rhonchii or wheezing abd: no rebound or guarding ,nt, bs present. ext pulses present , no cyanosis ,Gait well balanced well coordinated. neuro: axo3 , nonfocal. DS: Data Data Completed and Pending Labs on day of discharge: Laboratory Results - last 24 hr 04/03/21 04/03/21 04/03/21 17:45 17:45 17:45 WBC 7.7 RBC 4.58 Hgb 11.8 L Hct 36.9 L MCV 80.6 MCH 25.8 L MCHC 32.0 RDW 14.6 Plt Count 415 H MPV 9.6 Immature Gran % (Auto) 0.4 Neut % (Auto) 81.5 H Lymph % (Auto) 13.4 L [place] % (Auto) 4.3 Eos % (Auto) 0.0 Baso % (Auto) 0.4 Lymph # (Auto) 1.0 L [place] # (Auto) 0.3 Eos # (Auto) 0.0 Baso # (Auto) 0.0 Abs Immat Gran (auto) 0.03 Absolute Neuts (auto) 6.3 Absolute Nucleated RBC 0.000 Nucleated RBC % (auto) 0.0 ESR APTT D-Dimer High Sensitivty < 150 Sodium 138 Potassium 3.7 Chloride 108 Carbon Dioxide 21 L Anion Gap 13 BUN 8 L Creatinine 0.82 Estim Creat Clear Calc 103.6 Estimated GFR > 60 Random Glucose 134 H Calcium 9.8 Magnesium Troponin I High Sens C-Reactive Protein B-Natriuretic Peptide TSH Urine Color Urine Appearance Urine pH Ur Specific [place] Urine Protein Urine Glucose (UA) Urine Ketones Urine Blood Urine Nitrite Ur Leukocyte Esterase Urine RBC Urine WBC Ur Squamous Epith Cells Urine Bacteria COVID-19 (COLE) COVID-[employer] 04/03/21 04/03/21 04/03/21 17:45 18:37 18:37 WBC RBC Hgb Hct MCV MCH MCHC RDW Plt Count MPV Immature Gran % (Auto) Neut % (Auto) Lymph % (Auto) [place] % (Auto) Eos % (Auto) Baso % (Auto) Lymph # (Auto) [place] # (Auto) Eos # (Auto) Baso # (Auto) Abs Immat Gran (auto) Absolute Neuts (auto) Absolute Nucleated RBC Nucleated RBC % (auto) ESR 14 APTT 35.4 D-Dimer High Sensitivty Sodium Potassium Chloride Carbon Dioxide Anion Gap BUN Creatinine Estim Creat Clear Calc Estimated GFR Random Glucose Calcium Magnesium Troponin I High Sens < 3.5 C-Reactive Protein B-Natriuretic Peptide 18 TSH Urine Color Urine Appearance Urine pH Ur Specific [place] Urine Protein Urine Glucose (UA) Urine Ketones Urine Blood Urine Nitrite Ur Leukocyte Esterase Urine RBC Urine WBC Ur Squamous Epith Cells Urine Bacteria COVID-19 (COLE) [employer] 02/04/03/21 04/04/21 18:37 19:58 01:16 WBC RBC Hgb Hct MCV MCH MCHC RDW Plt Count MPV Immature Gran % (Auto) Neut % (Auto) Lymph % (Auto) [place] % (Auto) Eos % (Auto) Baso % (Auto) Lymph # (Auto) [place] # (Auto) Eos # (Auto) Baso # (Auto) Abs Immat Gran (auto) Absolute Neuts (auto) Absolute Nucleated RBC Nucleated RBC % (auto) ESR APTT D-Dimer High Sensitivty Sodium Potassium Chloride Carbon Dioxide Anion Gap BUN Creatinine Estim Creat Clear Calc Estimated GFR Random Glucose Calcium Magnesium 2.2 Troponin I High Sens C-Reactive Protein 0.13 B-Natriuretic Peptide TSH 0.54 Urine Color YELLOW Urine Appearance CLEAR Urine pH 7.0 Ur Specific [place] 1.010 Urine Protein NEG Urine Glucose (UA) NEG Urine Ketones NEG Urine Blood 1+ H Urine Nitrite NEG Ur Leukocyte Esterase TRACE H Urine RBC 1-4 Urine WBC 1-4 Ur Squamous Epith Cells 2+ Urine Bacteria TRACE COVID-19 (COLE) Negative COVID-19 Clin Com See Note 04/04/21 04/04/21 07:11 07:11 WBC 6.6 RBC 4.04 L Hgb 10.3 L Hct 32.9 L MCV 81.4 MCH 25.5 L MCHC 31.3 RDW 14.9 Plt Count 358 MPV 9.9 Immature Gran % (Auto) 0.3 Neut % (Auto) 60.5 Lymph % (Auto) 28.8 [place] % (Auto) 8.8 Eos % (Auto) 0.8 Baso % (Auto) 0.8 Lymph # (Auto) 1.9 [place] # (Auto) 0.6 Eos # (Auto) 0.1 Baso # (Auto) 0.1 Abs Immat Gran (auto) 0.02 Absolute Neuts (auto) 4.0 Absolute Nucleated RBC 0.000 Nucleated RBC % (auto) 0.0 ESR APTT D-Dimer High Sensitivty Sodium 141 Potassium 4.2 Chloride 112 H Carbon Dioxide 23 Anion Gap 10 L BUN 5 L Creatinine 0.72 Estim Creat Clear Calc 118.1 Estimated GFR > 60 Random Glucose 94 Calcium 9.1 D Magnesium Troponin I High Sens C-Reactive Protein B-Natriuretic Peptide TSH Urine Color Urine Appearance Urine pH Ur Specific [place] Urine Protein Urine Glucose (UA) Urine Ketones Urine Blood Urine Nitrite Ur Leukocyte Esterase Urine RBC Urine WBC Ur Squamous Epith Cells Urine Bacteria COVID-19 (COLE) COVID-19 Clin Com Preliminary micro results at discharge 04/03/21 19:58 Urine Culture - Preliminary Urine clean catch - Urine rodriguez top No growth to date. Discharge Plan Discharge Patient Disposition: Home, Self-Care Discharge Diagnosis: sinus tachycardia , possible anxiety, uti Referrals: Joo Kelly MD [Primary Care Provider] - 1 Week Discharge Medications: New cefuroxime axetil 250 mg tablet 250 mg PO Q12H Qty: 10 0RF Continued multivitamin Tablet 1 tab PO BEDTIME 0RF ferrous sulfate 325 mg (65 mg iron) Tablet 325 mg PO BEDTIME 0RF cholecalciferol (vitamin D3) [Vitamin D3] 25 mcg (1,000 unit) Tablet 25 mcg PO BEDTIME 0RF albuterol sulfate [Ventolin HFA] 90 mcg/actuation Hfa Aerosol Inhaler 2 puff INHALATION Q4-6H PRN (Reason: Shortness Of Breath) 0RF Discharge Orders: Discharge Order (Routine); Ordered 04/04/21 Ordered By: Elijah Rudd Diet: advance to usual diet Activity on Discharge: As tolerated Stand Alone Forms: Patient Portal Discharge page Care Plan Goals: Patient came to the hospital because of chest pain and tachycardia-workup tsh, including heart enzymes, pulmonary embolism-negative. Patient symptoms are improved currently and denies any chest pain. Seen by Cardiology: Thought to be benign sinus tachycardia, may be anxiety component . In addition patient was told to keep herself well hydrated. Care team saw the patient, information given. Health Concerns: As above. Plan of Treatment: As above. Assessment: As above.
--- NOTE | 2021-04-04 11:27 | PM.CNCAR ---
History of Present Illness History of Present Illness Date of Service: 04/04/21 Chief complaint: sinus tachycardia Narrative: This is a cardiology consultation regarding tachycardia. Patient does not have any known cardiac problems. For the last few days, she has been feeling various symptoms including sensation of chest pounding, chest tightness, headache, generalized weakness among others. She was also thought to have possibly an ear infection as well. When she arrived to the ER, she was found to be rather having sinus tachycardia. Even slight ambulation was making a tachycardic and she could feel that. Otherwise no known cardiac issues including cardiomyopathy or anything else. She states that she is feeling better but when she walks there is still some tachycardia. No cardiac arrhythmias known. Review of Systems Review of Systems: Yes all other systems are reviewed and are negative Cardiovascular: Cardiovascular: Reports as per HPI, Reports no additional cardiovascular complaints, Denies acrocyanosis, Denies cool extremities, Denies chest pain, Denies diaphoresis, Denies syncope (chest tightness), Denies claudication, Denies leg edema, Denies lightheadedness, Reports palpitations and Denies dyspnea Respiratory: Respiratory: Denies dyspnea Neurologic: Denies syncope (chest tightness) Endocrine: Endocrine: Reports palpitations PMFSH Past Medical History Medical History (Updated 04/04/21 @ 11:29 by Drake Wood MD) Anemia Vitamin D deficiency Family History Family History (Updated 04/04/21 @ 06:36 by Adina Graham MD) Father Atrial fibrillation Surgical History Surgical History History of tonsillectomy Social History Social History (Updated 04/04/21 @ 06:34 by Adina Graham MD) Alcohol intake: never Patient Tobacco Use Status: Never used Tobacco Use of substances other than those prescribed or required for medical reasons: No Advance Directives: No Advance Directives Information Provided: No Meds Allergies Allergy/AdvReac Type Severity Reaction Status Date / Time oxycodone [From OxyContin] AdvReac Drowsy Verified 04/04/21 00:13 Active Medications: Current Medications Acetaminophen (Acetaminophen 325 Mg Tablet) 650 mg PO Q6H PRN PRN Reason: Pain, Mild (Pain Scale 1-3) Docusate Sodium (Docusate Sodium 100 Mg Capsule) 100 mg PO DAILY PRN PRN Reason: Constipation Ceftriaxone Sodium 1 gm/ (Sodium Chloride) 50 mls @ 100 mls/hr IV Q24H [facility] Last Infusion: 04/04/21 08:40 Dose: Infused Documented by: Ondansetron HCl (Ondansetron Hcl 4 Mg/2 Ml Vial) 4 mg IVPUSH Q8H PRN PRN Reason: Nausea and Vomiting Pharmacy Consult (Consult Rx Perform Med Rec) 1 each MISCELLANE ONCE PRN PRN Reason: Consult order Sodium Chloride (0.9 % Sodium Chloride Flush 3 Ml Syringe) 3 ml IVFLUSH QSHIFT [facility] Last Admin: 04/04/21 08:40 Dose: Not Given Documented by: Home Medications Medication Instructions Recorded Confirmed Last Taken Type albuterol sulfate 90 mcg/actuation 2 puff INHALATION Q4-6H PRN 04/04/21 04/04/21 Unknown History aerosol inhaler (Ventolin HFA) cholecalciferol (vitamin D3) 25 25 mcg PO BEDTIME 04/04/21 04/04/21 04/03/21 History mcg (1,000 unit) tablet (Vitamin D3) ferrous sulfate 325 mg (65 mg 325 mg PO BEDTIME 04/04/21 04/04/21 04/03/21 History iron) tablet multivitamin 1 tab PO BEDTIME 04/04/21 04/04/21 04/03/21 History Physical Exam Vital Signs: Vital Signs: Last Vital Signs Temp 98.7 F 04/03/21 21:20 Pulse 91 04/04/21 10:47 Resp 15 04/04/21 10:47 BP 94/53 L 04/04/21 10:47 Pulse Ox 98 04/04/21 10:47 BMI result Body Mass Index 31.1 Const: General: comfortable HENMT: Other: Unremarkable Neck: Neck: Yes normal visual inspection Chest: Chest palpation & inspection: normal inspection of the chest Resp: Auscultation: clear to auscultation bilaterally Cardio: Palpation: normal PMI Heart sounds: S1 normal heart sound present, S2 normal heart sound present, no gallops, no murmurs and no rubs GI: Palpation (GI): Soft to palpation Back/Spine/Pelvis: Other: unremarkable Skin: Lesions: other Neuro: General: other Extrem: General: Yes other Psych: Mental Status: other Objective Labs and Meds Result diagrams: 04/04/21 07:11 02/27/22 07:11 Lab results: Laboratory Results - last 24 hr 04/03/21 04/03/21 04/03/21 17:45 17:45 17:45 WBC 7.7 RBC 4.58 Hgb 11.8 L Hct 36.9 L MCV 80.6 MCH 25.8 L MCHC 32.0 RDW 14.6 Plt Count 415 H MPV 9.6 Immature Gran % (Auto) 0.4 Neut % (Auto) 81.5 H Lymph % (Auto) 13.4 L [place] % (Auto) 4.3 Eos % (Auto) 0.0 Baso % (Auto) 0.4 Lymph # (Auto) 1.0 L [place] # (Auto) 0.3 Eos # (Auto) 0.0 Baso # (Auto) 0.0 Abs Immat Gran (auto) 0.03 Absolute Neuts (auto) 6.3 Absolute Nucleated RBC 0.000 Nucleated RBC % (auto) 0.0 ESR APTT D-Dimer High Sensitivty < 150 Sodium 138 Potassium 3.7 Chloride 108 Carbon Dioxide 21 L Anion Gap 13 BUN 8 L Creatinine 0.82 Estim Creat Clear Calc 103.6 Estimated GFR > 60 Random Glucose 134 H Calcium 9.8 Magnesium Troponin I High Sens C-Reactive Protein B-Natriuretic Peptide TSH Urine Color Urine Appearance Urine pH Ur Specific [place] Urine Protein Urine Glucose (UA) Urine Ketones Urine Blood Urine Nitrite Ur Leukocyte Esterase Urine RBC Urine WBC Ur Squamous Epith Cells Urine Bacteria COVID-19 (COLE) COVID-19 Clin Com 04/03/21 04/03/21 04/03/21 17:45 18:37 18:37 WBC RBC Hgb Hct MCV MCH MCHC RDW Plt Count MPV Immature Gran % (Auto) Neut % (Auto) Lymph % (Auto) [place] % (Auto) Eos % (Auto) Baso % (Auto) Lymph # (Auto) [place] # (Auto) Eos # (Auto) Baso # (Auto) Abs Immat Gran (auto) Absolute Neuts (auto) Absolute Nucleated RBC Nucleated RBC % (auto) ESR 14 APTT 35.4 D-Dimer High Sensitivty Sodium Potassium Chloride Carbon Dioxide Anion Gap BUN Creatinine Estim Creat Clear Calc Estimated GFR Random Glucose Calcium Magnesium Troponin I High Sens < 3.5 C-Reactive Protein B-Natriuretic Peptide 18 TSH Urine Color Urine Appearance Urine pH Ur Specific [place] Urine Protein Urine Glucose (UA) Urine Ketones Urine Blood Urine Nitrite Ur Leukocyte Esterase Urine RBC Urine WBC Ur Squamous Epith Cells Urine Bacteria COVID-19 (COLE) COVID-19 Clin Com 04/03/21 04/03/21 04/04/21 18:37 19:58 01:16 WBC RBC Hgb Hct MCV MCH MCHC RDW Plt Count MPV Immature Gran % (Auto) Neut % (Auto) Lymph % (Auto) [place] % (Auto) Eos % (Auto) Baso % (Auto) Lymph # (Auto) [place] # (Auto) Eos # (Auto) Baso # (Auto) Abs Immat Gran (auto) Absolute Neuts (auto) Absolute Nucleated RBC Nucleated RBC % (auto) ESR APTT D-Dimer High Sensitivty Sodium Potassium Chloride Carbon Dioxide Anion Gap BUN Creatinine Estim Creat Clear Calc Estimated GFR Random Glucose Calcium Magnesium 2.2 Troponin I High Sens C-Reactive Protein 0.13 B-Natriuretic Peptide TSH 0.54 Urine Color YELLOW Urine Appearance CLEAR Urine pH 7.0 Ur Specific [place] 1.010 Urine Protein NEG Urine Glucose (UA) NEG Urine Ketones NEG Urine Blood 1+ H Urine Nitrite NEG Ur Leukocyte Esterase TRACE H Urine RBC 1-4 Urine WBC 1-4 Ur Squamous Epith Cells 2+ Urine Bacteria TRACE COVID-19 (COLE) Negative COVID-19 Clin Com See Note 04/04/21 04/04/21 07:11 07:11 WBC 6.6 RBC 4.04 L Hgb 10.3 L Hct 32.9 L MCV 81.4 MCH 25.5 L MCHC 31.3 RDW 14.9 Plt Count 358 MPV 9.9 Immature Gran % (Auto) 0.3 Neut % (Auto) 60.5 Lymph % (Auto) 28.8 [place] % (Auto) 8.8 Eos % (Auto) 0.8 Baso % (Auto) 0.8 Lymph # (Auto) 1.9 [place] # (Auto) 0.6 Eos # (Auto) 0.1 Baso # (Auto) 0.1 Abs Immat Gran (auto) 0.02 Absolute Neuts (auto) 4.0 Absolute Nucleated RBC 0.000 Nucleated RBC % (auto) 0.0 ESR APTT D-Dimer High Sensitivty Sodium 141 Potassium 4.2 Chloride 112 H Carbon Dioxide 23 Anion Gap 10 L BUN 5 L Creatinine 0.72 Estim Creat Clear Calc 118.1 Estimated GFR > 60 Random Glucose 94 Calcium 9.1 D Magnesium Troponin I High Sens C-Reactive Protein B-Natriuretic Peptide TSH Urine Color Urine Appearance Urine pH Ur Specific [place] Urine Protein Urine Glucose (UA) Urine Ketones Urine Blood Urine Nitrite Ur Leukocyte Esterase Urine RBC Urine WBC Ur Squamous Epith Cells Urine Bacteria COVID-19 (COLE) COVID-19 Clin Com ECG Interpretation: EKG with sinus rhythm at 99/Min; nonspecific ST-T changes. Imaging Radiologist's impression: Impressions Chest X-Ray 04/03/21 18:00 IMPRESSION: No acute cardiopulmonary abnormality. Chest CTA 04/03/21 19:50 IMPRESSION: Normal pulmonary CTA. No evidence of embolic disease. VTE: negative Head CT 04/03/21 19:54 IMPRESSION: No acute intracranial pathology. Assessment and Plan (1) Sinus tachycardia: Status: Acute (2) Palpitations: Status: Acute (3) Chest pain: Qualifiers: Chest pain type: precordial pain Qualified Code(s): R07.2 - Precordial pain Status: Acute Plan Based on labs, there was slight neutrophil predominance upon arrival with may indicate infection. However, today, that seems improved. She also had slight lymphopenia upon arrival but that also has normalized. Renal function is unremarkable. Electrolytes are okay. High sensitivity troponin within normal limits. ESR and CRP are within normal limits. Cardiac BNP is also completely normal. TSH is normal. Head CT shows no acute pathology. Chest CT does not show any significant findings. In the mediastinum reported have normal heart size and no pericardial effusion or other pathology. Overall it is possible that she might be having a viral infection as she also had a question of year infection/headache. This might have led to some tachycardia. As she also has low blood pressure, do not recommend beta-blockers as it will make the blood pressure worse. At this time, reassurance only. Hopefully this will just improve once the infection resolves. Otherwise, we will get an echocardiogram and Holter as an outpatient to evaluate this further. Could be discharged. I did make her walk in the floor to check her heart rate and it went up approximately to 100/Min and she had no symptoms with ambulation. Procedures Date of Service Date of Service: 04/04/21
--- NOTE | 2021-04-04 12:19 | MHC.CM.PN ---
CM MET WITH PT AND WHO WAS AT BEDSIDE PT IS FULLY INDEPENDENT AND HAS NO DME AND NO SERVICES PT REPORTS HER PCP IS ANA JAMES AND HER IS HER HCP, COPY REQUESTED PT IS NOT COVID-19 VACCINATED OBSERVATION NOTICE DELIVERED PT WILL DC HOME TODAY WITH NO SERVICES TO TRANSPORT
--- NOTE | 2021-04-04 13:21 | MHC.CARE ---
CARE Team responded to consult request to speak with patient in ED Overflow bed 2 to discuss anxiety symptoms, who was at bedside was asked to step out to give clinician privacy. Patient freely discussed her symptoms and home stressors which do not appear overwhelming. There are four children in the home ages 2-15, family recently moved to [place] and by report, everyone is doing well. Patient stated that her is supportive and caring; mother is retired and helps with the children, a brother lives minutes away. Since this was school vacation week and patient said there was little to no rushing and feels things at home are stable. Patient seemed to be speaking honestly about any history of anxiety, believes she had only had one panic attack that she is aware of and that was during the of one of her children. She identified her recent symptoms as the most stressful event because is rarely sick, her father had cardiac issues beginning in his 40s and she is afraid to have a serious condition. Noted that she has not been feeling well and also had an ear infection. Provided psychoeducation regarding anxiety and panic attacks, patient willing to practice a breathing exercise that can be helpful in a variety of situations. Decline offer to refer to counseling stated that her family is close and she feels well supported, is aware of how to access professional mental health help if necessary further intervention indicated. Updated RN and
[2021-04-04 14:43] LABS: Adenovirus PCR Not Detected (Not Detect.); Bordetella parapertussis PCR Not Detected (Not Detect.); Bordetella pertussis PCR Not Detected (Not Detect.); Chlamydia pneumoniae PCR Not Detected (Not Detect.); Coronavirus 229E PCR Not Detected (Not Detect.); Coronavirus HKU1 PCR Not Detected (Not Detect.); Coronavirus NL63 PCR Not Detected (Not Detect.); Coronavirus OC43 PCR Not Detected (Not Detect.); Human metapneumovirus PCR Not Detected (Not Detect.); Influenza A PCR Not Detected (Not Detect.); Influenza B PCR Not Detected (Not Detect.); Mycoplasma pneumoniae PCR Not Detected (Not Detect.); Parainfluenza 1 PCR Not Detected (Not Detect.); Parainfluenza 2 PCR Not Detected (Not Detect.); Parainfluenza 3 PCR Not Detected (Not Detect.); Parainfluenza 4 PCR Not Detected (Not Detect.); RSV PCR Not Detected (Not Detect.); Rhino/Enterovirus PCR Not Detected (Not Detect.); SARS-CoV-2 PCR Not Detected (Not Detect.)
== END 2021-04-04 13:39 | disposition home or self-care (01) ==
LOC: HO.ED 23:31 → HO.EDOVER 23:46
PROVIDERS: Nurse Practitioner Family; Admitting Provider Internal Medicine; Emergency Provider Internal Medicine; PCP Internal Medicine; Visit Provider Internal Medicine
DX: R00.2 Palpitations (principal); R00.0 Tachycardia, unspecified; R07.2 Precordial pain; R51.9 Headache, unspecified; R53.1 Weakness; D50.9 Iron deficiency anemia, unspecified; D70.9 Neutropenia, unspecified; E55.9 Vitamin D deficiency, unspecified; H66.91 Otitis media, unspecified, right ear; F41.9 Anxiety disorder, unspecified; Z20.822 Contact with and (suspected) exposure to COVID-19; Z88.6 Allergy status to analgesic agent; Z79.899 Other long term (current) drug therapy
CPT/HCPCS: 36415; 70460; 71045; 71275; 80048; 81001; 83735; 83880; 84443; 84484; 85025; 85379; 85652; 85730; 86140; 87086; 87633; 87635; 93005; 96361; 96365; 96375; 99205; 99219; 99285; 99291; J0696; Q9967

== ENCOUNTER → 2021-04-26 11:20 | Outpatient (REF) | payer OTHER, SELFPAY ==
--- NOTE | 2021-04-26 11:25 | CA_ITS ---
Transthoracic Echocardiogram Patient (Last, First, Middle): Annemarie Wiggins, Gender: Female Date of : 1980 Age: 40 Procedure Date: 04/26/2021 Procedure Type: Transthoracic Echocardiogram Location: OP Height: 167.64 cm Weight: 87.09 kg BSA: 1.97 m2 Heart Rate: bpm BP: 140 / 90 mmHg Senior Private Client Advisor: Referring MD: Drake Wood MD Symptoms: R00.0 - Tachycardia, unspecified Study Quality: Fair ECG Rhythm: Sinus Conclusions: - The left ventricular systolic function is normal. The calculated ejection fraction is 68% by biplane method. - No obvious valvular pathology seen on this study. Findings Left Ventricle Normal left ventricular cavity size. There is normal left ventricular wall thickness. The left ventricular systolic function is normal. The calculated ejection fraction is 68% by biplane method. There is no evidence of regional wall motion abnormalities. Diastolic function is normal for age. Right Ventricle Normal right ventricular cavity size and systolic function. Atria Both atria are normal in size. Aortic Valve The aortic valve was not well visualized. The aortic valve structure and function is likely normal. There is no aortic valve stenosis. There is no aortic valve regurgitation. Mitral Valve The mitral valve appears normal. There is no mitral valve regurgitation. There is no mitral valve stenosis. Pulmonic Valve The pulmonic valve was not well visualized. Tricuspid Valve The tricuspid valve was not well visualized. There is trace tricuspid valve regurgitation. The pulmonary artery systolic pressure is normal. Great Vessels The asc aorta is normal in size. Venous The inferior vena cava is normal in size and collapses greater than 50% with inspiration. Pericardium/Pleural There is no evidence of pericardial effusion. Prior Study Comparison No prior study available for comparison. Recommendations, Care & Conclusions No obvious valvular pathology seen on this study. Measurements 2D Linear Measurements IVSd: 0.93 0.6-0.9/0.6-1.0 cm LVIDd: 4.18 3.9-5.3/4.2-5.9 cm LVIDd Index: 2.12 2.4-3.2/2.2-3.1 cm/m2 LVIDs: 2.94 2.0-3.6 cm LVPWd: 0.97 0.7-1.1 cm Ao Root: 3.00 2.1-3.5 cm LA Diam: 3.30 2.7-3.8/3.0-4.0 cm LAIDs Index: 1.68 1.5-2.3 cm/m2 LV Mass: 157.44 67-162/88-224 g LV Mass Index: 79.92 43-95/49-115 g/m2 LVOT Diam: 2.30 3.0+(-)1.3 cm 2D Systolic Function EF 4C: 70.00 >55% EF 2C: 65.00 >55% EF BiP: 68.20 >55% Mitral Valve MV VTI: 0.32 MV Pk Tino: 0.76 MV Mn Tino: 0.43 MV Pk Grad: 2.00 MV Mn Grad: 1.00 MV Pk E: 0.70 MV PK A: 0.52 MV Decel Time: 176.00 E/A: 1.40 E'Lateral: 15.00 E'Medial: 11.00 E/E' Med: 6.40 E/E' Lat: 4.70 PHT: 52.00 MVA PHT: 4.23 MVA Continuity: 2.71 Decel [place]: 3.99 Aortic Valve AoV Pk Tino: 1.28 AoV Mn Tino: 0.76 AoV VTI: 0.30 AoV Pk Grad: 7.00 Aov Mn Grad: 3.00 FABY Cont.VTI: 2.84 LVOT LVOT Pk Tino: 1.02 LVOT Mn Tino: 0.61 LVOT VTI: 0.21 LVOT Pk Grad: 4.00 LVOT Mn Grad: 2.00 LVOT Diam: 2.30 LVOT Area: 4.15 Diastolic Function MV Pk E: 0.70 MV Pk A: 0.52 E/A: 1.40 E'Medial: 11.00 E/E' Med: 6.40 E' Laterial: 15.00 E/E' Lat: 4.70 Tricuspid Valve TR Pk Tino: 1.78 TR Pk Grad: 13.00 RA Press: 3.00 RVSP: 16.00 Great Vessels Aorta Ao Root-2D: 3.00 2.0-3.7 cm Sinus of Valsalva: 3.00 2.0-3.5 cm Ao Asc: 3.00 2.1-3.4 cm Pulmonary Valve PV Pk Tino: 0.96 Peak PV Grad: 4.00 Updated in Other Vendor System with Status of Final Drake Wood MD electronically signed on 04/26/2021 3:47:56 PM with status of Final
== END ==
LOC: HO.CARD 11:20
PROVIDERS: Visit Provider Internal Medicine
DX: R00.0 Tachycardia, unspecified (principal); R00.2 Palpitations
CPT/HCPCS: 93306

== ENCOUNTER → 2021-04-28 14:50 | Outpatient (REF) | payer OTHER, SELFPAY ==
--- NOTE | 2021-04-28 14:54 | HM_ITS ---
* Total monitoring time 3 days. * Underlying rhythm is sinus. Average heart rate 87/Min. Range 61 to 136/Min. About 17% of the time, rate greater than 100/Min. * No atrial fibrillation or flutter or AV blocks or pauses. * No ectopy as well. * No patient events. MTDD
== END ==
LOC: HO.CARD 14:50
PROVIDERS: Visit Provider Internal Medicine
DX: R00.2 Palpitations (principal)
CPT/HCPCS: 93242